=== PATIENT | male | born 1980 | race African-American/Black ===

== ENCOUNTER 2020-05-21 00:06 | Inpatient (IN) | payer MEDICAID ==
[~2020-05-21] VITALS: Ht 180.3 cm; Wt 86.2 kg
[2020-05-21] VITALS (9 sets, daily range): BP systolic 135–177; BP diastolic 70–98; Ht 180.3 cm; Wt 86.2 kg
--- NOTE | ~2020-05-21 | OP ---
PATIENT NAME: PHANI LYONS MEDICAL RECORD: [id number] :78 LOCATION:[facility] ADMISSION DATE:05/21/20 SURGEON: TARA AKERS MD DATE OF OPERATION: 05/23/2020 PREOPERATIVE DIAGNOSIS: Septic olecranon bursitis, left elbow status post incision and drainage. POSTOPERATIVE DIAGNOSIS: Septic olecranon bursitis, left elbow status post incision and drainage. PROCEDURE PERFORMED: 1. Incision and debridement of left elbow (skin, subcutaneous tissue, fascia). 2. Delayed closure of complex wound, left elbow (11.5 cm). INDICATIONS FOR THE PROCEDURE: Mr. Lyons is a 39-year-old male with history of a septic olecranon bursitis, left elbow status post incision and drainage on Sunday. Wound VAC was placed at that time. Wound cultures have been positive for Staph aureus with sensitivities pending. He returns to the OR today for repeat I&D with a VAC change versus closure. Risks, benefits, alternatives of surgery were discussed with the patient including but not limited to pain, infection, bleeding, damage to surrounding structures and potential need for further surgery. All questions were answered. Consent was obtained. DESCRIPTION OF THE PROCEDURE: The patient was met in the holding area where his identity and confirmation of procedure was performed. Left upper extremity was marked. He was taken to the operating room where he was placed supine on the operating table and anesthesia was administered. A tourniquet was applied to left arm and left arm was prepped and draped in a sterile fashion. The patient was on scheduled antibiotics; therefore, did not receive any immediately preop. A timeout was performed for initiating the case. On initiation of the case, the arm was gravity exsanguinated. Tourniquet was raised. The wound was explored, did not have any evidence of purulence. There was good bleeding from the surrounding tissues. A thorough I&D was performed of the skin, subcutaneous tissue and fascia. There was a small area of necrotic tissue at the tip of the olecranon that was debrided sharply with a scalpel. After thorough debridement and irrigation, we then proceeded with the wound closure. With the elbow held in extension, 3-[address] was [address] to [address] vertical mattress sutures and performed wound closure. Total area closed was 11.5 cm. The incision came together nicely, but did have some tension with elbow flexion. Sterile dressing was then placed. The patient was placed into a splint with the arm in extension. He was turned back over to anesthesia where he was awakened, extubated, and taken to the recovery room in stable condition. POSTOPERATIVE PLAN: The patient is going to return to the floor for routine postoperative care. We will continue his IV antibiotics and follow culture sensitivities. Once those are finalized, he should be able to return home hopefully within the next day or so. We will need to keep his elbow in full extension until the wound is healed, likely approximately 2 weeks. We will plan to see him back in clinic in 1 week for a wound check. ANESTHESIA: General. COMPLICATIONS: None. OPERATIVE REPORT [id number] PHANI LYONS ESTIMATED BLOOD LOSS: 25 mL. TRANSINT:[id number] Voice Confirmation ID: [id number] DOCUMENT ID: [id number] TARA AKERS MD CC: [id number] DICTATION DATE: 05/23/20941 STATUE CARVER: 05/23/20 1232 ADM IN [facility] [id number] [place] [address]
[2020-05-21 01:12] LABS: BASOPHILS 0.2 % (0-2); EOSINOPHILS 0.7 % (0-7); HEMATOCRIT 35.1 % (42.0-54.0); HEMOGLOBIN 11.2 g/dL (13.5-17.5); IMMATURE GRANULOCYTES 0.3 % (0-5); LYMPHOCYTES 14.3 % (15-50); MCH 25.6 pg (26.0-34.0); MCHC 31.9 g/dL (31.0-37.0); MCV 80.3 fL (80.0-100.0); MEAN PLATELET VOLUME 9.6 fL (7.4-10.4); MONOCYTES 8.9 % (2-11); NEUTROPHILS 75.6 % (40-80); PLATELET COUNT 276 10x3/uL (130-400); RBC 4.37 10x6/uL (4.20-6.10); RDW 14.9 % (11.5-14.5); WBC 13.1 10x3/uL (4.8-10.8)
[2020-05-21 01:20] LABS: CALC OSMOLALITY 267 mosm/kg (275-300); CALCIUM 9.2 mg/dL (8.5-10.1); CHLORIDE - SERUM 98 mmol/L (98-107); CREATININE - SERUM 0.9 mg/dL (0.6-1.3); GLUCOSE 130 mg/dL (74-106); POTASSIUM - SERUM 3.2 mmol/L (3.5-5.1); SODIUM 134 mmol/L (136-145); UREA NITROGEN 7 mg/dL (7-18); eGFR NON AFRICAN AMERICAN > 90 mL/min (90-120)
[2020-05-21 01:21] LABS: APTT 30.6 SECONDS (22.8-39.4); INR 1.02 (0.85-1.17); PROTIME 13.4 SECONDS (11.6-15.0)
[2020-05-21 01:51] LABS: ALBUMIN 2.8 g/dL (3.4-5.0); ALKALINE PHOSPHATASE 106 U/L (30-120); ALT (SGPT) 29 U/L (10-68); BILIRUBIN - TOTAL 0.36 mg/dL (0.2-1.3); CKMB 0.4 U/L (0.0-3.6); CREATINE KINASE 190 UL (21-232); PROTEIN - SERUM 7.9 g/dL (6.4-8.2)
[2020-05-21 01:55] LABS: C-REACTIVE PROTEIN 24.9 mg/dL (0.0-0.9); TROPONIN-I < 0.017 ng/mL (0.000-0.060)
[2020-05-21 04:40] LABS: BILIRUBIN NEGATIVE (NEGATIVE); GLUCOSE 50 mg/dL (NEGATIVE); KETONE NEGATIVE (NEGATIVE); NITRITE NEGATIVE (NEGATIVE); UROBILINOGEN NORMAL (NORMAL)
[2020-05-21 04:42] LABS: BACTERIA FEW /hpf (NEGATIVE); EPITHELIAL CELLS 0-5 /hpf (0-5); RED CELLS - URINE 0-5 /hpf (0-5); WHITE CELLS - URINE 0-5 /hpf (NEGATIVE)
--- NOTE | 2020-05-21 07:48 | NUR ---
ROUSES TO VERBAL AND TACTILE STIMULATION. NOT TALKING THIS AM. GRUNTS TO YES NO QUESTIONS. LUNGS ARE CLEAR BILATERALLY, NO COUGH NOTED. SKIN IS INTACT WITHOUT REDNESS EXCEPT WOUND TO LEFT ELBOW, WHICH HAS A DRY INTACT DRESSING IN PLACE AND 2 SCABBED AREAS NOTED TO RIGHT ARM WITH A LARGE KNOT ON ONE OF THEM. IV TO RIGHT SHOULDER IS PATENT WITHOUT REDNESS AT INSERTION SITE. NO NEEDS NOTED.
[2020-05-21 08:42] LABS: BASOPHILS 0.3 % (0-2); EOSINOPHILS 1.3 % (0-7); HEMATOCRIT 34.2 % (42.0-54.0); IMMATURE GRANULOCYTES 0.2 % (0-5); LYMPHOCYTES 16.3 % (15-50); MCH 25.6 pg (26.0-34.0); MCHC 32.2 g/dL (31.0-37.0); MCV 79.7 fL (80.0-100.0); MEAN PLATELET VOLUME 9.8 fL (7.4-10.4); MONOCYTES 11.4 % (2-11); NEUTROPHILS 70.5 % (40-80); PLATELET COUNT 270 10x3/uL (130-400); RBC 4.29 10x6/uL (4.20-6.10); RDW 14.8 % (11.5-14.5); WBC 10.5 10x3/uL (4.8-10.8)
[2020-05-21 08:47] LABS: CALC OSMOLALITY 273 mosm/kg (275-300); CARBON DIOXIDE 29.7 mmol/L (21.0-32.0); CHLORIDE - SERUM 105 mmol/L (98-107); CREATININE - SERUM 0.9 mg/dL (0.6-1.3); GLUCOSE 107 mg/dL (74-106); SODIUM 138 mmol/L (136-145); UREA NITROGEN 6 mg/dL (7-18); eGFR NON AFRICAN AMERICAN > 90 mL/min (90-120)
[2020-05-21 08:48] LABS: POTASSIUM - SERUM 3.7 mmol/L (3.5-5.1)
[2020-05-21 11:45] LABS: UDS - AMPHET POSITIVE QUAL (NEGATIVE); UDS - BARB NEGATIVE QUAL (NEGATIVE); UDS - BENZO NEGATIVE QUAL (NEGATIVE); UDS - COCAINE NEGATIVE QUAL (NEGATIVE); UDS - OPIATE NEGATIVE QUAL (NEGATIVE); UDS - PCP NEGATIVE QUAL (NEGATIVE); UDS - THC POSITIVE QUAL (NEGATIVE)
--- NOTE | 2020-05-21 12:02 | NUR ---
OFF UNIT VIA BED TO SURGERY.
--- NOTE | 2020-05-21 15:11 | NUR ---
RETURNED FROM SURGERY. VSS. DRESSING TO LEFT ELBOW DRY AND INTACT.
--- NOTE | 2020-05-21 18:11 | NUR ---
ATE ALL OF SUPPER. WAS USING URINAL AND SPILLED. LINENS CHANGED PER STAFF, SKIN CARE PER STAFF. AMBULATED TO WITH MIN ASSIST OF ONE. VOIDED WITHOUT DIFFICULTY.LEFT ELBOW UP ON 2 PILLOWS. DENIES NEEDS. NO CHANGES NOTED.
[2020-05-22 00:18] VITALS: BP 147/69
[2020-05-22 04:00] VITALS: BP 152/75
[2020-05-22 05:34] LABS: BASOPHILS 0.2 % (0-2); EOSINOPHILS 0.1 % (0-7); HEMATOCRIT 35.8 % (42.0-54.0); HEMOGLOBIN 11.6 g/dL (13.5-17.5); IMMATURE GRANULOCYTES 0.2 % (0-5); LYMPHOCYTES 10.4 % (15-50); MCH 25.7 pg (26.0-34.0); MCHC 32.4 g/dL (31.0-37.0); MCV 79.2 fL (80.0-100.0); MEAN PLATELET VOLUME 9.7 fL (7.4-10.4); NEUTROPHILS 82.1 % (40-80); PLATELET COUNT 299 10x3/uL (130-400); RBC 4.52 10x6/uL (4.20-6.10); RDW 14.5 % (11.5-14.5); WBC 12.2 10x3/uL (4.8-10.8)
[2020-05-22 05:53] LABS: C-REACTIVE PROTEIN 14.6 mg/dL (0.0-0.9); CALC OSMOLALITY 276 mosm/kg (275-300); CALCIUM 8.6 mg/dL (8.5-10.1); CARBON DIOXIDE 28.2 mmol/L (21.0-32.0); CHLORIDE - SERUM 105 mmol/L (98-107); CREATININE - SERUM 0.8 mg/dL (0.6-1.3); GLUCOSE 115 mg/dL (74-106); POTASSIUM - SERUM 3.8 mmol/L (3.5-5.1); SODIUM 139 mmol/L (136-145); UREA NITROGEN 6 mg/dL (7-18); eGFR NON AFRICAN AMERICAN > 90 mL/min (90-120)
[2020-05-22 09:42] VITALS: BP 149/86
--- NOTE | 2020-05-22 10:51 | NUR ---
PT ALERT X 4. BREATH SOUNDS CLEAR BILAT. IV TO RIGHT SHOULDER PATENT, DRESSING CDI. LUIS FELIPE TO LEFT ARM. PT REPORTING NO PAIN AT THIS TIME. BED LOW, CALL LIGHT IN REACH. NO OTHER NEEDS AT THIS TIME.
[2020-05-22 12:52] VITALS: BP 150/104
--- NOTE | 2020-05-22 19:00 | NUR ---
ALERT AND ORIENTED WHEN ENTERING THE ROOM. PATIENT EATING DINNER. STATES HE CAN FEEL "TINGLING" IN HIS FINGERS NOW BUT DENIES PAIN MEDICINE AT THIS TIME. PATIENT HAS LEFT ARM DRESSING AND WOUND VAC CONNECTED CURRENTLY SUCTIONING AT 125 [employer]. HAS RIGHT SHOULDER IV THAT APPEARS PATENT WITHOUT SWELLING OR INFLAMMATION. DISCUSSED CONSENTS AND NPO STATUS AT [facility]. PATIENT VERBALIZES UNDERSTANDING. DENIES FURTHER NEEDS AT THIS TIME. CALL LIGHT IS CLOSE TO PATIENT. ASSESSMENT COMPLETE, SEE CHART. CPOC.
[2020-05-22 20:00] VITALS: BP 144/88
--- NOTE | 2020-05-22 20:18 | NUR ---
ANSWERED PATIENT CALL LIGHT. REQUESTS PAIN MEDICINE FOR PAIN RATING OF 4 IN LEFT ELBOW. ADMINISTERED PER ORDER. DENIES FURTHER NEEDS AT THIS TIME. CPOC.
--- NOTE | 2020-05-22 21:00 | NUR ---
PATIENT STATES PAIN MEDICATION WAS EFFECTIVE AND RATES PAIN AT A 0. NO DISTRESS. DENIES NEEDS. CALL LIGHT CLOSE. CPOC.
[2020-05-23] VITALS: BP 140/82
[2020-05-23 04:00] VITALS: BP 165/95
[2020-05-23 08:14] LABS: BASOPHILS 0.2 % (0-2); EOSINOPHILS 1.9 % (0-7); HEMOGLOBIN 10.8 g/dL (13.5-17.5); IMMATURE GRANULOCYTES 0.3 % (0-5); LYMPHOCYTES 22.6 % (15-50); MCH 25.4 pg (26.0-34.0); MCHC 31.8 g/dL (31.0-37.0); MEAN PLATELET VOLUME 9.8 fL (7.4-10.4); MONOCYTES 6.7 % (2-11); NEUTROPHILS 68.3 % (40-80); PLATELET COUNT 338 10x3/uL (130-400); RBC 4.25 10x6/uL (4.20-6.10); RDW 14.9 % (11.5-14.5); WBC 11.6 10x3/uL (4.8-10.8)
[2020-05-23 08:27] LABS: CALC OSMOLALITY 279 mosm/kg (275-300); CALCIUM 8.7 mg/dL (8.5-10.1); CARBON DIOXIDE 31.4 mmol/L (21.0-32.0); CHLORIDE - SERUM 107 mmol/L (98-107); CREATININE - SERUM 0.9 mg/dL (0.6-1.3); GLUCOSE 104 mg/dL (74-106); POTASSIUM - SERUM 3.8 mmol/L (3.5-5.1); SODIUM 142 mmol/L (136-145); UREA NITROGEN 5 mg/dL (7-18); eGFR NON AFRICAN AMERICAN > 90 mL/min (90-120)
[2020-05-23 09:07] VITALS: BP 138/82
[2020-05-23 10:16] VITALS: BP 150/91
--- NOTE | 2020-05-23 10:58 | OP ---
PATIENT NAME: PHANI LYONS MEDICAL RECORD: [id number] :78 LOCATION:[facility] ADMISSION DATE:05/21/20 SURGEON: TARA AKERS MD DATE OF OPERATION: 05/21/2020 PREOPERATIVE DIAGNOSIS: Septic olecranon bursitis, left elbow. POSTOPERATIVE DIAGNOSIS: Septic olecranon bursitis, left elbow PROCEDURE PERFORMED: 1. Incision and debridement of left elbow skin, subcutaneous tissue and fascia. 2. Application of wound VAC, left elbow (less than 50 cm-squared). INDICATIONS FOR THE PROCEDURE: Mr. Lyons is a 39-year-old male who presented to the Emergency Department yesterday with a 2-day history of pain and swelling in the left elbow. Symptoms started about 2 days ago. He denies any injury. He does have a history of IV drug abuse, but does not report injecting into the left arm. Just prior to admission, wound over the elbow opened and has been draining. He denies any history of fevers. He was admitted, started on IV antibiotics. On evaluation, he was noted to have septic olecranon bursitis with purulence draining from the elbow. Arrangements made for him to come to the operating room today for operative debridement. Risks, benefits and alternatives of surgery were discussed with the patient and consent was obtained. DESCRIPTION OF PROCEDURE: The patient was met in the holding area where his identity and confirmation of procedure was performed. Left upper extremity was marked. He was taken to the operating room where he was placed supine on the operating table and anesthesia was administered. Left upper extremity was prepped and draped in a sterile fashion. The patient is on scheduled antibiotics; therefore, did not receive any immediately preop. Timeout was performed before initiating the case. On initiation of the case, the arm was gravity exsanguinated and the sterile tourniquet was raised. Total tourniquet time was 21 minutes. An incision was made posteriorly over the elbow at the midline and the areas of necrotic tissue over the tip of the elbow were peripherally excised. On excision, there was noted to be purulence extending into the subcutaneous fatty tissue and around the bursa. This area was debrided sharply with a knife and scissors and rongeurs. Our excision was extended both proximally and distally and a ruffin elevator was used over the fascia to help elevate the tissue and assess for any spread. The infection appeared to be contained mostly within the bursa and again this area was debrided with the rongeur until I did not appreciate any further purulence in the soft tissues. The wound was irrigated thoroughly with 3 liters of saline. Wound measured 9 x 5 cm after debridement. A wound VAC was then applied to this area and compression was confirmed in the operating room. A sterile dressing was then placed and the patient was placed into a posterior long arm splint. He was turned back over to anesthesia. He is awakened, extubated, and taken to recovery room in stable condition. POSTOPERATIVE PLAN: The patient is going to return to the floor for routine postoperative care. He will continue his IV antibiotics and follow his culture results. He needs to keep the hand and arm elevated. Plan to return to the operating room on Sunday for repeat I&D with wound VAC change versus closure. ANESTHESIA: General. OPERATIVE REPORT [id number] PHANI LYONS COMPLICATIONS: None. ESTIMATED BLOOD LOSS: 25 mL. TRANSINT:[id number] Voice Confirmation ID: [id number] DOCUMENT ID: [id number] TARA AKERS MD at 1058 CC: [id number] DICTATION DATE: 05/21/20 1452 ACID CRANE OPERATOR: 05/22/20 0053 ADM IN [facility] [address] [id number]
--- NOTE | 2020-05-23 13:51 | NUR ---
PT ALERT X 4. BREATH SOUNDS CLEAR BILAT. IV TO RIGHT SHOULDER PATENT, DRESSING CDI. PT HAD SURGERY TODAY. LUIS FELIPE TO LEFT ARM. PT REPORTING NO PAIN AT THIS TIME. BED LOW, CALL LIGHT IN REACH. NO OTHER NEEDS AT THIS TIME.
[2020-05-23 17:03] VITALS: BP 146/88
[2020-05-23 20:00] VITALS: BP 167/60
[2020-05-24] VITALS: BP 172/67
[2020-05-24 07:27] LABS: BASOPHILS 0.2 % (0-2); HEMATOCRIT 32.9 % (42.0-54.0); HEMOGLOBIN 10.6 g/dL (13.5-17.5); IMMATURE GRANULOCYTES 0.2 % (0-5); LYMPHOCYTES 19.5 % (15-50); MCH 25.5 pg (26.0-34.0); MCHC 32.2 g/dL (31.0-37.0); MCV 79.1 fL (80.0-100.0); MEAN PLATELET VOLUME 9.2 fL (7.4-10.4); MONOCYTES 6.7 % (2-11); NEUTROPHILS 71.4 % (40-80); PLATELET COUNT 327 10x3/uL (130-400); RBC 4.16 10x6/uL (4.20-6.10); RDW 14.8 % (11.5-14.5); WBC 10.6 10x3/uL (4.8-10.8)
[2020-05-24 07:40] LABS: CALC OSMOLALITY 279 mosm/kg (275-300); CALCIUM 8.6 mg/dL (8.5-10.1); CARBON DIOXIDE 31.1 mmol/L (21.0-32.0); CHLORIDE - SERUM 106 mmol/L (98-107); CREATININE - SERUM 0.9 mg/dL (0.6-1.3); GLUCOSE 96 mg/dL (74-106); POTASSIUM - SERUM 3.8 mmol/L (3.5-5.1); SODIUM 142 mmol/L (136-145); UREA NITROGEN 5 mg/dL (7-18); eGFR NON AFRICAN AMERICAN > 90 mL/min (90-120)
[2020-05-24 08:41] VITALS: BP 142/91
--- NOTE | 2020-05-24 10:53 | NUR ---
HE IS ALERT. HE SAYS THE DOCTOR TOLD HIM HE WOULD GO HOME TODAY. THE LEFT ARM IS IN AN LUIS FELIPE DRESSING. HE CAN MOVE HIS FINGERS. THE CALL LIGHT IS WTIHIN REACH. HE IS WALKING AROUND IN THE ROOM.
[2020-05-24 12:27] VITALS: BP 146/87
--- NOTE | 2020-05-24 13:47 | EC ---
PATIENT:PHANI LYONS DATE OF SERVICE: 05/21/20 SEX: M MEDICAL RECORD: [id number] DATE OF : [birth year] LOCATION:D[facility] AGE OF PATIENT: 39 ADMISSION DATE: 05/21/20 REFERRING PHYSICIAN: INTERPRETING PHYSICIAN: SOFI MURRAY MD ECHOCARDIOGRAM REPORT ECHO CHARGES 4 ECHO COMPLETE Date: 05/22/20 CLINICAL DIAGNOSIS: IV DRUG USE - R/O VEGETATION ECHOCARDIOGRAPHIC MEASUREMENTS (adult normal given) AC root (d.<3.7cm) 3.3 cm LV Septum d (<1.2 cm> 1.4 cm Valve Excursion 2.2 cm LV Septum (systole) 1.6 cm Left Atria (s.<4.0cm> 3.5 cm LVPW d(<1.2cm) 1.2 cm RV (d.<2.3cm) 2.8 cm LVPW (sytole) 1.7 cm LV diastole(<5.6CM) 6.0 cm MV E-F(>70mm/sec) cm LV systole 3.8 cm LVOT Diameter 2.2 cm MV exc.(>10mm) cm Est.ejection fraction (50-75%) % DOPPLER: LVIT cm/sec A 53.0 cm/sec E 87.0 cm/sec LA cm/sec RVSP 26.0 mmHg LVOT 95.0 cm/sec AOP1/2T m/s Asc. Ao 158 cm/sec RVOT 58.0 cm/sec RA cm/sec PA 81.0 cm/sec AV Gradient Peak 9.9 mmHg AV Mean 4.3 mmHg AV Area 2.6 cm MV Gradient Peak 4.6 mmHg MV Mean 1.6 mmHg MV Area cm COMMENTS: Business Account Leader: 1 MARTIN SEVERIANO Machine Stripper Cutter: 3 Dr. Berg TAPE# PACS Pericardial Effusion N DATE OF SERVICE: Adequate 2D, color flow imaging, spectral Doppler, and M-Mode. Mild LVH. LV internal dimensions are normal. Wall motion is normal. EF is greater than or equal to 55%. Aortic valve is tricuspid. There is no evidence of stenosis by Doppler interrogation. Left atrium is normal 3.5 cm. Mitral valve shows no prolapse. Trace MR. Right-sided chambers are grossly normal. Trace TR. No evidence of vegetation seen on all 4 cardiac valves. ECHOCARDIOGRAM REPORT [id number] PHANI LYONS TRANSINT:[id number] Voice Confirmation ID: [id number] DOCUMENT ID: [id number] SOFI MURRAY MD at 1347 CC: [id number] DICTATION DATE: 05/23/20 1149 CUSTOMS DIRECTOR: 05/23/20 2158 ADM IN [facility] [address] [place] [address]
[2020-05-24] MEDS ORDERED: CLINDAMYCIN HC300 MG PO (14:34)
[2020-05-24] MEDS ORDERED: NICODERM CQ1 EAC3 TOPICAL (14:35)
--- NOTE | 2020-05-24 14:50 | MORECARE ---
CASE MANAGEMENT DISCHARGE SUMMARY PATIENT: PHANI LYONS UNIT: [id number] ADM DATE: 05/21/20 AGE: 39 : [birth year] SEX: M ROOM/BED: D.2202 AUTHOR: DOMINGUEZ DELAROSA PHYSICIAN: REFERRING PHYSICIAN: JOVANY BENJAMIN MD DATE OF SERVICE: 05/24/20 Discharge Plan Patient Name: PHANI LYONS Facility: [facility]:[place] : 1980 Planned Disposition: Home or Self Care Anticipated Discharge Date: Discharge Date: Expected LOS: Initial Reviewer: [email or web address] Initial Review Date: 05/21/2020 Generated: 05/24/20 3:49 pm Patient Name: PHANI LYONS Page [phone] at 1450 All edits/amendments must be made on the electronic document DICTATION DATE: 05/24/20 1449 QUALITY ASSURANCE GROUP LEADER: JESSICA 05/24/20 1449 RPT#: [id number] DC DATE: STATUS: ADM IN [facility] [address] [place] [address] END OF REPORT
--- NOTE | 2020-05-24 14:58 | MORECARE ---
CASE MANAGEMENT DISCHARGE SUMMARY PATIENT: PHANI LYONS UNIT: [id number] ADM DATE: 05/21/20 AGE: 39 : [birth year] SEX: M ROOM/BED: D.2202 AUTHOR: DOMINGUEZ DELAROSA PHYSICIAN: REFERRING PHYSICIAN: JOVANY BENJAMIN MD DATE OF SERVICE: 05/24/20 Discharge Plan Patient Name: PHANI LYONS Facility: [facility]:[place] : 1980 Planned Disposition: Home or Self Care Anticipated Discharge Date: Discharge Date: Expected LOS: Initial Reviewer: [email or web address] Initial Review Date: 05/21/2020 Generated: 05/24/20 3:57 pm Comments DCP- Discharge Planning Updated by [email or web address]: Usha Munoz on 05/24/20 1:[address] Patient Name: PHANI LYONS Admission Status: ER Accout number: [id number] Admission Date: 05-21-2020 : 1980 Admission Diagnosis: Attending: JOVANY BENJAMIN Current LOS: 3 Anticipated DC Date: Planned Disposition: Home or Self Care Primary Insurance: MEDICAID [place] PENDING Discharge Planning Comments: I MET WITH PATIENT ABOUT ANY DC NEEDS. DR AKERS WANTED TO MAKE SURE HE COULD AFFORD HIS ABX. I SPOKE WITH THE PATIENT AND HE STATED HE COULD AFFORD IT. I GAVE HIM A GOOD RX CARD AND EXPLAINED TO HIM THAT THE CHEAPEST PLACE WOULD BE [facility]. HE UNSERSTOOD THAT AND SAID HE WOULD TAKE IT THERE. I ALSO GAVE HIM A COURT EXCUSE FOR HIM TO TAKE TO COURT TO LET THEM KNOW THAT HE WAS IN THE HOSPITAL. HE HAS A FRIEND WHO WILL TAKE HIM HOME Composition Professor: Usha Munoz Last DP export: 05/24/20 1:50 pm Patient Name: PHANI LYONS Page [phone] at 1458 All edits/amendments must be made on the electronic document DICTATION DATE: 05/24/200 TECHNICAL DESIGNER: JESSICA 05/24/20 1458 RPT#: [id number] DC DATE: STATUS: ADM IN [facility] [address] [place] [address] END OF REPORT
--- NOTE | 2020-05-24 17:31 | NUR ---
IV REMOVED, HE WALKED OUT TO THE FRONT DOOR TO MEET HIS RIDE. HE DID NOT WANT TO USE THE WHEELCHAIR.
--- NOTE | 2020-05-25 09:00 | MORECARE ---
CASE MANAGEMENT DISCHARGE SUMMARY PATIENT: PHANI LYONS UNIT: [id number] ADM DATE: 05/21/20 AGE: 39 : 79 SEX: M ROOM/BED: D.2202 AUTHOR: DOMINGUEZ DELAROSA PHYSICIAN: REFERRING PHYSICIAN: JOVANY BENJAMIN MD DATE OF SERVICE: 05/25/20 Discharge Plan Patient Name: PHANI LYONS Facility: [facility]:[place] : 1980 Planned Disposition: Home or Self Care Anticipated Discharge Date: Discharge Date: 05/24/2020 Expected LOS: Initial Reviewer: [email or web address] Initial Review Date: 05/21/2020 Generated: 05/25/20 9:59 am Comments DCP- Discharge Planning Updated by [email or web address]: Usha Munoz on 05/24/20 1:[address] Patient Name: PHANI LYONS Admission Status: ER Accout number: [id number] Admission Date: 05-21-2020 : 1980 Admission Diagnosis: Attending: JOVANY BENJAMIN Current LOS: 3 Anticipated DC Date: Planned Disposition: Home or Self Care Primary Insurance: MEDICAID [place] PENDING Discharge Planning Comments: I MET WITH PATIENT ABOUT ANY DC NEEDS. DR AKERS WANTED TO MAKE SURE HE COULD AFFORD HIS ABX. I SPOKE WITH THE PATIENT AND HE STATED HE COULD AFFORD IT. I GAVE HIM A GOOD RX CARD AND EXPLAINED TO HIM THAT THE CHEAPEST PLACE WOULD BE [facility]. HE UNSERSTOOD THAT AND SAID HE WOULD TAKE IT THERE. I ALSO GAVE HIM A COURT EXCUSE FOR HIM TO TAKE TO COURT TO LET THEM KNOW THAT HE WAS IN THE HOSPITAL. HE HAS A FRIEND WHO WILL TAKE HIM HOME Dental Practitioner: Usha Munoz Last DP export: 05/24/20 1:58 pm Patient Name: PHANI LYONS Page [phone] at 0900 All edits/amendments must be made on the electronic document DICTATION DATE: 05/25/2059 ICT SALES REPRESENTATIVE: JESSICA 05/25/20 0859 RPT#: [id number] DC DATE:05/24/20 STATUS: DIS IN [id number] [place] [address] END OF REPORT
== END 2020-05-24 17:33 | disposition home or self-care (01) | DRG 501 ==
LOC: D.ER 00:06 → D.MS 02:46
PROVIDERS: Family Medicine; Orthopaedic Surgery; ADMIT Emergency Medicine; ATTEND Emergency Medicine
PROC: 0MB40ZZ Excision of Left Elbow Bursa and Ligament, Open Approach (ICD-10-PCS; principal; 2020-05-21 12:45)
PROC: 0JQH0ZZ Repair Left Lower Arm Subcutaneous Tissue and Fascia, Open Approach (ICD-10-PCS; 2020-05-23)
DX: M71.122 Other infective bursitis, left elbow (principal); F17.213 Nicotine dependence, cigarettes, with withdrawal; E87.1 Hypo-osmolality and hyponatremia; L03.112 Cellulitis of left axilla; B95.62 Methicillin resistant Staphylococcus aureus infection as the cause of diseases classified elsewhere; I10 Essential (primary) hypertension; E87.6 Hypokalemia; F15.90 Other stimulant use, unspecified, uncomplicated; F12.90 Cannabis use, unspecified, uncomplicated; D64.9 Anemia, unspecified